=== PATIENT | male | born 1965 | race Caucasian/White ===

== ENCOUNTER 2017-10-29 18:11 | Emergency (ER) | payer OTHER ==
[~2017-10-29] VITALS: Ht 172.7 cm; Wt 80.0 kg
[~2017-10-29 18:11] MED LIST: ABIL5; AMLO5TAB4; CARB100C4; FLUT10SP; TRAZ50TA47; [UNRECOGNIZED DRUG - OTHER]
[2017-10-29 18:53] VITALS: BP 134/65
== END 2017-10-29 21:13 | disposition left against medical advice (07) ==
LOC: ER 20:37
DX: J45.909 Unspecified asthma, uncomplicated (principal); Z53.21 Procedure and treatment not carried out due to patient leaving prior to being seen by health care provider

== ENCOUNTER 2018-06-12 19:26 | Emergency (ER) | payer MEDICARE, OTHER ==
[~2018-06-12] VITALS: Ht 157.5 cm; Wt 73.0 kg
[2018-06-12] MEDS ORDERED: IBUPROFEN 800MG TABLET PO ONE (23:00)
[2018-06-12 23:18] VITALS: BP 138/65
== END 2018-06-12 23:35 | disposition home or self-care (01) ==
LOC: ER 19:26
DX: R51 Headache (principal); G40.909 Epilepsy, unspecified, not intractable, without status epilepticus; I10 Essential (primary) hypertension; F31.9 Bipolar disorder, unspecified
CPT/HCPCS: 99282